=== PATIENT | male | born 1945 | race Caucasian/White ===

== ENCOUNTER 2017-02-24 12:12 | Emergency (ER) | payer MEDICARE ==
[~2017-02-24 12:12] MED LIST: ALFUZOSIN PO; ALLERCLEAR 10MG10 MG PO; AMBIEN10 MG PO; AMITRIPTYLINE PO; AMLACTIN400 GM TOP; ASPART INSULIN SQ; ASPIRIN PO; CAPSAICIN; CAPSAICIN CREAM; CAPSAICIN60 GM TP; CIPRO PO; CLARITIN10 M2 PO; CLARITIN10 MG PO; CLOTRIMAZOLE15 GM TP; DILAUDID2 MG PO; FLAGYL PO; FLEXERIL10 MG PO; FLOMAX0.4 M1 PO; FLUNISOLIDE25 ML NS; GABAPENTIN PO; GABAPENTIN400 MG PO; GLARGINE SUBQ; GLIPIZIDE10 MG PO; HUMULIN N100 U/ML SQ; IBUPROFEN PO; LAC-HYDRIN 5113 GM TP; LAC-HYDRIN LOT225 GM; LANTUS INSULIN PO; LANTUS100 U/M1 SQ; LASIX20 MG PO; LISINOPRIL PO; LISINOPRIL10 MG PO; LISINOPRIL2.5 MG PO; LISINOPRIL5 MG PO; LORTAB 5-325 M1 EACH PO; LYRICA PO; LYRICA50 MG PO; MELOXICAM PO; MELOXICAM15 MG PO; METFORMIN HCL850 MG PO; METFORMIN PO; METOPROLOL PO; MYLANTA GAS80 MG PO; NASALIDE INHALE25 ML; NEURONTIN300 MG PO; PREGABALIN PO; PROMETHAZINE HC25 MG PO; SIMVASTATIN PO; SIMVASTATIN10 MG PO; TOPROL XL PO; TYLENOL #3 PO; VICODIN 5/1 TAB 5/50 PO; VICTOZA INJ SQ; VOLTAREN75 MG PO; ZOCOR80 MG PO; ZOLPIDEM PO
== END 2017-02-24 12:52 | disposition home or self-care (01) ==
LOC: SED 12:12
DX: Z45.2 Encounter for adjustment and management of vascular access device (principal); E11.9 Type 2 diabetes mellitus without complications; E78.00 Pure hypercholesterolemia, unspecified; Z79.899 Other long term (current) drug therapy
CPT/HCPCS: 99282

== ENCOUNTER 2017-06-12 07:40 | Emergency (ER) | payer MEDICARE ==
[~2017-06-12] VITALS: Ht 167.6 cm; Wt 83.9 kg
--- NOTE | ~2017-06-12 | CR63 ---
[facility] A Service of [facility] RADIOLOGY TEXT RESULTS PATIENT: CHARITY SENIOR LOCATION: [facility] : 47 UNIT #: [id number] AGE: [address]: Marisol Best APRN SEX: M ORDER DR: [id number] [facility] [address] [place], [place] [address] [id number] E MR#: [id number] Acc #: [id number] NAME: CHARITY SENIOR. : 1945 SEX: M STUDY DATE/TIME: 06/12/2017 8:24 UNIT: [facility] ROOM: STUDY DESCRIPTION: CR Chest 2 View Attending Physician: Marisol Best A.P.R.N. Ordering Physician: Ed Barry Armenta M.D. Primary Care Physician: Deepali Escalante M.D. MEDICAL IMAGING REPORT This report is preliminary unless electronic signature is present EXAM 2 views of the chest. COMPARISON November 22, 2016 and November 30, 2015 and June 09, 2015. INDICATIONS 71-year-old male with right posterior rib pain and mid back pain as well as dyspnea for 4 weeks after falling. History of diabetes. FINDINGS There is stable fracture of the third most superior sternotomy wire. Cardiomediastinal silhouette is normal. Changes of CABG noted. No evidence of pneumothorax, pleural effusion or focal airspace disease. Prior cholecystectomy. Bridging syndesmophytes of the thoracic spine suggesting DISH or possibly ankylosing spondylitis. Surgical anchor again noted in the left humeral head. IMPRESSION 1. No acute radiographic abnormality of the chest. Normal heart size with changes of CABG. Findings suggesting prior left rotator cuff repair. Prior cholecystectomy. 2. Findings suggestive of either DISH or possible ankylosing spondylitis of the thoracic spine. Clinical correlation recommended. Dictated by... Lit Castro M.D. THIS IS AN ELECTRONICALLY VERIFIED REPORT Lit Castro M.D. at 06/17/2017 4:18 PM BLM/gz [facility] A Service of [facility] RADIOLOGY TEXT RESULTS PATIENT: CHARITY SENIOR [id number] : [birth year] UNIT #: [id number] AGE: [address]: Marisol Best APRN SEX: M ORDER DR: TD: 06/12/2017 12:39 JOB #: [id number] MEDICAL IMAGING REPORT Page 1 of 1 COPY
--- NOTE | ~2017-06-12 | CR243 ---
[facility] A Service [facility] RADIOLOGY TEXT RESULTS PATIENT: CHARITY SENIOR LOCATION: [facility] : 47 UNIT #: [id number] AGE: [address]: Marisol Best APRN SEX: M ORDER DR: [id number] [facility] [address] [place], [place] [address] [id number] E MR#: [id number] Acc #: [id number] NAME: CHARITY SENIOR. : 1945 SEX: M STUDY DATE/TIME: 06/12/2017 8:25 UNIT: [facility] ROOM: STUDY DESCRIPTION: CR Thoracic Spine 3 Views Attending Physician: Marisol Best A.P.R.N. Ordering Physician: Ravi Armenta M.D. Primary Care Physician: Deepali Escalante M.D. MEDICAL IMAGING REPORT This report is preliminary unless electronic signature is present EXAM Thoracic spine, 3 views COMPARISON October 20, 2009 and radiographs of the cervical spine dated October 20, 2009. INDICATION 71-year-old male with mid-back pain since falling 4 weeks ago. FINDINGS There is stable fracture of the third most superior sternotomy wire. Change of CABG again noted. Surgical anchor in the left humeral head is confirmed on comparison radiographs of the chest on the same date. Thoracic spine is anatomically aligned. T1 and T2 are suboptimally evaluated due to overlapping structures on both the lateral and swimmer's views. No definite fracture is seen. There is anterior osteophyte formation and disc height loss at multiple levels of the lower cervical spine. There is flowing anterior calcification of the thoracic spine suggesting either DISH or ankylosing spondylitis. Lateral flowing syndesmophytes are also noted with same differential diagnosis. IMPRESSION 1. Limited evaluation of the T1 and T2 vertebral bodies which appear to maintain their normal height and are anatomically aligned. Correlation with point tenderness is recommended in this location. No evidence of acute fracture of the lumbar spine is seen on this exam. 2. Finding suggestive of either DISH or ankylosing spondylitis of the thoracic spine. [facility] A Service [facility] RADIOLOGY TEXT RESULTS PATIENT: CHARITY SENIOR LOCATION: [facility] [place] #: [id number] : 47 UNIT #: [id number] AGE: [address]: Marisol Best APRN SEX: M ORDER DR: Dictated by... Lit Castro M.D. THIS IS AN ELECTRONICALLY VERIFIED REPORT Lit Castro M.D. at 06/16/2017 4:30 PM BRANDO/chance TD: 06/12/2017 12:51 JOB #: [id number] MEDICAL IMAGING REPORT Page 1 of 1 COPY
--- NOTE | ~2017-06-12 | CT57 ---
[facility] A Service of [facility] & [facility] RADIOLOGY TEXT RESULTS PATIENT: CHARITY SENIOR LOCATION: [facility] : 47 UNIT #: [id number] AGE: [address]: Marisol Best APRN SEX: M ORDER DR: [id number] [facility] [address] [place], [place] [address] [id number] E MR#: [id number] Acc #: [id number] NAME: CHARITY SENIOR : 1945 SEX: M STUDY DATE/TIME: 06/12/2017 09:40 UNIT: [facility] ROOM: STUDY DESCRIPTION: CT Chest Wo Cont Attending Physician: Marisol Best A.P.R.N. Ordering Physician: Ed Barry Armenta M.D. Primary Care Physician: Deepali Escalante M.D. MEDICAL IMAGING REPORT This report is preliminary unless electronic signature is present EXAM CT chest without contrast 06/12/2017 0940 hours CLINICAL HISTORY Patient complains of right chest and rib pain, chest pain with inhalation for 1 month. Pain began 4 weeks ago when patient fell out of a taxi in [place] landing on right chest on a [address] COMPARISON Chest x-ray 06/12/2017. No prior chest CT. TECHNIQUE Helical noncontrasted images were obtained from the thoracic inlet through the adrenal glands. Sagittal and coronal reconstructions were performed. No contrast was administered. Total exam DLP 447 mGy-cm. This CT exam was performed with one or more of the following radiation dose reduction techniques: Automatic exposure control, adjustment of mA and/or kV according to patient size, and iterative reconstruction. FINDINGS Images through the thoracic inlet demonstrate no thyroid lesion or adenopathy. Images through the chest demonstrate prior median sternotomy and CABG change. The aorta is normal. Cardiac chambers, pericardium, and esophagus are normal. There are benign calcified right hilar nodes. There is no pathologic adenopathy. Coronary calcifications are present. The lung window images demonstrate clear lungs. There is very minimal scarring at the right base. There is no effusion or pneumothorax. Bone window images were created and reviewed. There is no rib fracture seen. No callus formation. There is no thoracic spine fracture. There [facility] A Service of [facility] & [facility] RADIOLOGY TEXT RESULTS PATIENT: CHARITY SENIOR LOCATION: [facility] : 47 UNIT #: [id number] AGE: [address]: Marisol Best PROCESS MAINTENANCE TECHNICIAN SEX: M ORDER DR: are anterior flowing osteophytes throughout the upper and mid-levels suggesting diffuse idiopathic skeletal hyperostosis. There is mild to moderate bilateral symmetric gynecomastia. Limited views through the upper abdomen demonstrate cholecystectomy change. The liver appears relatively small. There is no focal liver lesion. The spleen, pancreas, bile ducts and adrenal glands are normal. IMPRESSION 1. The lungs are clear. There is no pleural effusion or pneumothorax. No fracture seen. 2. Flowing osteophytes in the thoracic spine consistent with diffuse idiopathic skeletal hyperostosis. There is no thoracic fracture. 3. Median sternotomy change with well-healed sternotomy. No sternal lesion seen. Dictated by... Asha Orozco M.D. THIS IS AN ELECTRONICALLY VERIFIED REPORT Asha Orozco M.D. at 06/12/2017 2:30 PM LOR/darrin TD: 06/12/2017 13:59 JOB #: [id number] MEDICAL IMAGING REPORT Page 1 of 1 COPY
[2017-06-12 09:29] LABS: BASOPHIL# 0.1 X10e3 (0-0.3); BASOPHIL% 1.4 % (0-2.5); EOSINOPHIL# 0.3 X10e3 (0-0.7); EOSINOPHIL% 3.3 % (0.0-7.0); HEMATOCRIT 44.3 % (38.0-50.0); HEMOGLOBIN 14.7 gm/dL (13.0-16.0); LYMPHOCYTE# 1.6 X10e3 (1.0-3.5); LYMPHOCYTE% 18.1 % (17.0-45.0); MEAN CELL VOLUME 82.7 FL (83-96); MEAN CORPUSCULAR HEMOGLOBIN 27.5 PG (28-34); MEAN CORPUSCULAR HGB CONC 33.3 g/dL (30-36); MEAN PLATELET VOLUME 8.6 FL (6.5-11.5); MONOCYTE# 0.8 X10e3 (0-1.0); MONOCYTE% 9.5 % (3.0-12.0); NEUTROPHIL# 5.9 X10e3 (1.5-7.1); NEUTROPHIL% 67.7 % (40-75); PLATELET COUNT 192 X10e3 (140-420); RED BLOOD COUNT 5.36 X10e (3.90-5.60); RED CELL DISTRIBUTION WIDTH 14.2 % (11.0-15.5); WHITE BLOOD COUNT 8.7 X10e3 (4.0-10.5)
[2017-06-12 09:32] LABS: URINE SOURCE CLEAN CATCH
[2017-06-12 09:32] LABS: DIFF IND NO
[2017-06-12 09:41] LABS: URINE APPEARANCE CLEAR; URINE BILIRUBIN NEG (NEG); URINE BLOOD NEG (NEG); URINE COLOR YELLOW; URINE GLUCOSE >1000 MG/DL (NEG); URINE KETONE NEG (NEG); URINE LEUKOCYTE ESTERASE NEG (NEG); URINE NITRATE NEG (NEG); URINE PH 6.5 (5-8); URINE PROTEIN NEG (NEG); URINE SPECIFIC GRAVITY 1.021 (1.003-1.035)
[2017-06-12 09:50] LABS: BILIRUBIN,TOTAL 0.1 mg/dL (0.2-2.0); BUN/CREATININE RATIO 15.38; CALCIUM SERUM 9.1 mg/dL (8.4-10.2); CREATININE SERUM 1.3 mg/dL (0.6-1.4); GLOM FILT RATE Estimated 55.3 mL/min (>60); POTASSIUM 4.3 mmol/L (3.5-5.1); PROTEIN TOTAL SERUM 7.5 g/dL (6.0-8.3)
[2017-06-12 09:55] LABS: CULTURE INDICATED? NO
== END 2017-06-12 11:01 | disposition home or self-care (01) ==
LOC: CED 07:40
PROVIDERS: Nurse Practitioner
DX: R07.81 Pleurodynia (principal); R55 Syncope and collapse; R03.0 Elevated blood-pressure reading, without diagnosis of hypertension; E11.9 Type 2 diabetes mellitus without complications; I50.9 Heart failure, unspecified; Z95.1 Presence of aortocoronary bypass graft
CPT/HCPCS: 36415; 71020; 71250; 72072; 80053; 81003; 85025; 96374; 96375; 99284; J2270; J2405